=== PATIENT | male | born 1960 | race Caucasian/White ===

== ENCOUNTER → 2022-03-02 10:46 | Outpatient (CLI) | payer OTHER, SELFPAY ==
[2022-03-02 13:18] LABS: COVID19 -Nasal RAPID Negative (Negative)
== END ==
PROVIDERS: Visit Provider Family Medicine Sleep Medicine
DX: Z20.822 Contact with and (suspected) exposure to COVID-19 (principal)
CPT/HCPCS: 87635; C9803

== ENCOUNTER 2022-03-04 05:39 | Inpatient (IN) | payer OTHER, SELFPAY ==
[2022-02-25 13:47] VITALS: BMI 30.2
[2022-03-04] VITALS (18 sets, daily range): BP systolic 125–151; BP diastolic 58–87; PULSE 59–80; RESP 12–18; TEMP 35.3–36.3; O2SAT 92–100; BMI 30.2; BMI 27.6
--- NOTE | 2022-03-04 | DI.RAD.S_ITS ---
PROCEDURE: XR CERVICAL SPINE 2V OR 3V INDICATIONS: C4-7 ACDF TECHNIQUE: 3 intraoperative low resolution fluoroscopic spot films were obtained COMPARISON: None. FINDINGS: Low resolution intraoperative fluoroscopic spot films show C4-5, C5-6 and C6-7 discectomy and fusion with anterior plate and screw hardware in good position. Endotracheal tube noted. IMPRESSION: Fluoroscopic guidance Approved by: Benjamin Duron M.D. on 03/04/2022 at 11:59
[2022-03-04] MEDS: LACTATED RINGERS 1,000 ML 84 ML IV ×2 (07:13→10:38)
--- NOTE | 2022-03-04 07:57 | SUR.PREOP ---
Dr Ramirez notified that patient reports fever of 108 after surgery about 20 years ago, reporting that he was really sick. Pt not sure if temperature right after surgery or the next day due to infection.
--- NOTE | 2022-03-04 08:38 | PM.PREOP ---
Pre-operative Note COVID-19 COVID-19 status: Negative Result date/Date tested (Pos, Neg/Pending): 03/03/22 Criteria for continued procedure: Expected advancement of disease process, Possibility delay results in more complex future surgery or treatment, Increased loss of function, Continuing or worsening of significant or severe pain, Deterioration of the patient's condition or overall health and Delay expected to result in less-positive ultimate med/surg outcome Interval Note History & Physical reviewed/Exam performed by Physician: Yes Changes to H&P: No
[2022-03-04] MEDS: CEFAZOLIN 2 GM/20 ML SYRINGE IV ×2 (08:45→18:38)
--- NOTE | 2022-03-04 09:08 | SUR.OPER ---
Supine, head on gel donut. Arms padded with gel pads, tucked at sides, towel roll under shoulders. Safety belt at thigh. Legs uncrossed with pillow placed under knees and gel pads placed under bilateral heels.
[2022-03-04] MEDS: BUPIVACAINE 0.25% W/ EPI 30 ML VIAL INJ (11:30)
--- NOTE | 2022-03-04 11:33 | P.OP_ITS ---
Operative Date/Time/Diagnoses Date of procedure: 03/04/22 Time of procedure: 08:45 Pre-op diagnosis: 1. C4-5, C5-6, C6-7 spinal stenosis 2. C4-5, C5-6, C6-7 spondylosis with radiculopathy Post-op diagnosis: same Procedure & Clinicians Procedure: 1. C4-5 C5-6 C6-7 anterior cervical diskectomy and fusion 2. C4-5 C5-6 C6-7 anterior interbody cage placement 3. C4-5 C5-6 C6-7 anterior instrumentation with plate and screw placement in C4-C5-C6 and C7 vertebrae 4. Utilization of microsurgical technique and operating microscope Same procedure as scheduled: Yes Indications: Patient has been having chronic neck pain and worsening cervical radiculopathy. Patient failed multiple conservative management with worsening pain weakness and numbness in his upper extremity on the left side. Patient has been having difficulty performing activity of daily living. After discussing risks benefits of treatment options, patient elected proceed with surgery. Surgeon: Jeffy Carrasco Financial Systems Administrator: Kvng Camara Click Yes if Unassisted: No Anesthesia Type: General Operative Notes Closure Type: primary Specimen(s): none sent Estimated Blood Loss (mL): 5 Blood products transfused: none Procedure in detail: Patient was seen in the preoperative area. Risks and benefits of the surgery was discussed with the patient. Operative consent was obtained and placed in the chart. Patient was then taken to the operative room. Prophylactic antibiotic was given less than 0.5 hr prior to skin incision. General anesthesia was administered. Patient was placed into a supine position on her radiolucent table. Bilateral shoulders were taped down to allow proper C-arm imaging. Anterior cervical area was prepped and draped in a sterile fashion. Time-out was performed at this time. Using lateral C-arm imaging, the level between C4 and C7 was identified and marked on patient's neck. A oblique incision from midline towards medial border of sternocleidomastoid muscle was made. The platysma muscle was incised in line with skin incision. Metzenbaum scissor was used to develop the plane between the medial border of sternocleidomastoid and the strap muscles medially. The carotid sheath and its contents were identified and protected behind the hand-held retractor during the entire case. The plane between the carotid sheath and strap muscles was developed with Metzenbaum scissors. Dissection was made down to the level of the anterior cervical fascia. Longus colli muscle was incised on the anterior aspect of vertebral bodies bilaterally from C4-C7. Spinal needle was placed into the C4-5 disc space and confirmed with lateral C-arm imaging. Self- retaining retractors were then placed protecting the carotid sheath the sheath laterally and the esophagus medially while exposing the surgical field between C4-C7 vertebrae. Using microsurgical technique and operative microscope, anterior cervical diskectomy was performed at C4-5 C5-6 and C6-7 level. This was done by removing the disc material, removing the anterior and posterior osteophytes posterior longitudinal ligaments along with performing bilateral foraminotomies at all 3 levels. Patient was found to have severe central and foraminal stenosis at all 3 levels. Patient's stenosis was fully decompressed after decompression was c ompleted. After the diskectomy was completed, 3 anterior interbody cages were obtained. The cages were packed with globus Trifecta bone grafting material. One cage each along with the bone grafting material was then packed into the interbody spaces from C4-C7 with one cage into each interbody level. Patient had large anterior osteophytes at C5-C6 and C7 vertebrae. Large osteophytes was removed using Leksell rongeur in order to place anterior cervical plate. After the cages were placed, the anterior cervical plate was stabilized to the C4-C7 vertebrae using 2 screws at each each level. Total 8 screws were placed. After confirming placement of the hardware with AP and lateral C-arm imaging, the screws were locked into the plate using the locking mechanism and torque limiting screwdriver. After the hardware was placed and confirmed with AP and lateral C-arm imaging, the wound was irrigated with sterile normal saline. Hemostasis was accomplished using bipolar cautery. Carotid sheath contents and the esophagus was inspected and visualized and identified to be well protected throughout the entire case prior to closure. Platysma muscle and the subcutaneous tissue was closed with 2-0 Vicryl. The skin was closed with 4-0 Monocryl and Steri-Strips. Patient tolerated the procedure well. Patient was transferred recovery room in stable condition. There were no complications. Complications: none Post-operative Condition: stable Disposition: PACU Plan for aftercare: Admit to inpatient hospital
[2022-03-04] MEDS: HYDROMORPHONE 2 MG INJ IV ×2 (11:54→12:03)
[2022-03-04] MEDS: LORazepam 2 MG/ML INJ 0.25 MG IV ×3 (11:56→12:15)
[2022-03-04] MEDS: hydrOXYzine 50 MG/ML INJ IM (12:37)
[2022-03-04] MEDS: OXYCODONE/ACETAMINOPHEN 5/325 TABLET 1 TAB PO (12:41)
[2022-03-04] MEDS: SODIUM CHLORIDE 0.9% 1,000 ML 100 ML IV (14:33)
[2022-03-04] MEDS: OXYCODONE IR 5 MG TABLET 10 MG PO ×3 (14:40→23:14)
--- NOTE | 2022-03-04 15:50 | PC.NURSE ---
Pt arrived from PACU, drowsey but awakens easily. IVF infusing into LFA as per MD orders. Soft collar to neck, anterior dsg CDI. Med w/oxycodone w/good relief. Call light w/in reach, bed alarm of of pt safety.
[2022-03-04] MEDS: HYDROMORPHONE 0.5 MG INJ IV (20:11)
[2022-03-04] MEDS: HYDROMORPHONE 0.5 MG INJ 1 MG IV ×2 (21:05→23:12)
[2022-03-04] MEDS: SENNOSIDES 8.6 MG TABLET 17.2 MG PO (21:06)
[2022-03-04] MEDS: DOCUSATE 100 MG CAPSULE PO (21:06)
[2022-03-04] MEDS: diazePAM 5 MG TABLET PO (21:06)
[2022-03-05] MEDS: CEFAZOLIN 2 GM/20 ML SYRINGE IV (01:28)
[2022-03-05] MEDS: OXYCODONE IR 5 MG TABLET 10 MG PO (04:57)
[2022-03-05 05:00] VITALS: BP 134/78; PULSE 68; RESP 16; TEMP 36.3; O2SAT 97
[2022-03-05] MEDS: diazePAM 5 MG TABLET PO (05:01)
--- NOTE | 2022-03-05 07:46 | PM.DS.1 ---
History of Present Illness History of Present Illness Date Patient Seen: 03/05/22 Time Patient Seen: 07:47 Chief complaint: Neck pain s/p cervical fusion Narrative: Patient is complaining of moderate neck pain this morning. He notes that the oxy is helping significantly with his pain. He states the pressure has decreased significantly compared to his preoperative symptoms. Overall he is very pleased with his results thus far. He denies any new numbness or tingling. He is feeling pretty good and would like to be discharged home today if he is safe. Discharge Providers Provider Date of admission: 03/04/22 05:39 Discharge Date: 03/05/22 Consults: 03/04/22 13:08 Consult to Occupational Therapy Evaluate & Treat Comment: Physician Instructions: Evaluate and treat Consult to Physical Therapy Evaluate & Treat Comment: Physician Instructions: Evaluate and Treat Discharge provider: Esther Haas PA-C Summary Hospital Course Discharge Diagnosis: 1. C4-5, C5-6, C6-7 spinal stenosis 2. C4-5, C5-6, C6-7 spondylosis with radiculopathy Hospital Course: Operative Date/Time/Diagnoses Date of procedure: 03/04/22 Time of procedure: 08:45 Procedure & Clinicians Procedure: 1.? C4-5 C5-6 C6-7 anterior cervical diskectomy and fusion 2.? C4-5 C5-6 C6-7 anterior interbody cage placement 3.? C4-5 C5-6 C6-7 anterior instrumentation with plate and screw placement in C4-C5-C6 and C7 vertebrae 4.? Utilization of microsurgical technique and operating microscope Same procedure as scheduled: Yes Indications: ?Patient has been having chronic neck pain and worsening cervical radiculopathy. Patient failed multiple conservative management with worsening pain weakness and numbness in his upper extremity on the left side.? Patient has been having difficulty performing activity of daily living.? After discussing risks benefits of treatment options, patient elected proceed with surgery. Surgeon: Jeffy Carrasco Bilingual Call Center Representative: Kvng Camara Click Yes if Unassisted: No Anesthesia Type: General Operative Notes Closure Type: primary Specimen(s): none sent Estimated Blood Loss (mL): 5 Blood products transfused: none Status at Discharge Cognitive/behavioral status at discharge: oriented Overall status at discharge: patient is progressing back to baseline Exam Vital Signs (past 8 hours): - 03/05/22 05:00 Temperature 97.3 F L Pulse Rate 68 Respiratory Rate 16 Blood Pressure 134/78 Pulse Oximetry 97 Oxygen Delivery Method Nasal Cannula Oxygen Flow Rate 0 Narrative Exam Narrative: Pleasant 61-year-old male, resting comfortably in bed, no acute distress. Dressing is clean, dry, intact. Soft cervical collar is in place. Bilateral upper extremity: Motor functions are grossly intact, sensation is grossly intact to light touch. [facility]LY [facility] Medical History Cirrhosis Hepatic cirrhosis due to chronic hepatitis C infection Hepatitis C HTN (hypertension) Sciatica Spinal stenosis in cervical region Trauma (~2002) Surgical History History of carpal tunnel surgery of right wrist History of lumbar spinal fusion (~2019) Hx of hernia repair Hx of laminectomy (~1989) Social History household members: significant other Smoking Status: Former smoker alcohol intake: former Discharge Assessment & Plan Assessment and Plan Assessment: -stable status post C4-5, C5-6, C6-7 ACDF Plan of Treatment: -mobilize with PT. Limit bending, lifting, twisting x6 weeks -continue with multimodal pain management. The patient understands he needs to be using p.o. pain medications only. -will stop Valium and change to Vistaril as needed -DC home today if cleared by PT Discharge Plan Discharge Plan Patient Disposition: Home Discharge orders & Medications Prescriptions: New bisacodyl 10 mg Suppository 10 mg HI PRN PRN (Reason: Constipation) Qty: 12 0RF hydroxyzine pamoate 25 mg Capsule 25 mg PO Q4HR PRN (Reason: Muscle spasms/pain) Qty: 40 0RF oxycodone 5 mg Tablet See Rx Instructions .ROUTE .COMPLEX PRN (Reason: Pain, Severe (7-10)) Qty: 42 0RF Rx Instructions: Take 1-2 tablets every 4 hours as needed for moderate to severe postop pain Continued amlodipine 10 mg Tablet 10 mg PO DAILY 0RF Label Comments: Pt takes at 2pm daily propranolol 120 mg Capsule,Extended Release 24 Hr 120 mg PO DAILY 0RF Label Comments: Pt takes at 2pm daily Follow up/Referrals: Jeffy Carrasco MD [Physician] - (10-14 days for postoperative visit) Diet/Activity/Treatments Diet: Diet as Tolerated Other treatments: Medications: -Oxycodone 5 mg take 1-2 tablets every 4 hours as needed for moderate-severe pain (narcotic pain medication). -As needed medications: -Ducolax and /or MiraLax as needed for constipation from narcotic pain medications. -Pepcid AC as needed for stomach upset. -Vistaril (hydroxyine) 25mg 1 tab every 4 hours as needed for spasms/pain/nausea. Diet: -Stick with soft, easy to swallow foods for the first few days. Dressing/Wound care: -Keep dressing in place until postoperative follow-up office visit. -Okay to shower. Keep wound out of direct water stream. Can use PressNSeal plastic wrap to protect from shower stream. No soaking or submerging until all the scabs fall off (approximately 6 weeks). -Please call the office if dressing becomes wet, soiled, or saturated. Activities: -Wear collar when sitting upright or standing. May take off to eat and shower. Can sleep without collar, but you may find it more comfortable to wear while sleeping. -Limit bending, lifting, twisting x 6 weeks. -Continue with home exercises as directed by your physical therapist. -Ice your incision as needed for pain/inflammation/swelling. You can heat to the back of your neck as needed for pain. Protect your skin with a folded pillowcase. -Incentive Spirometer (breathing device from hospital): 5-10xs every hour while awake for the first 1-2 weeks. Follow-up: -Follow-up with your surgeon or PA in the office in 10-14 days after surgery. -Follow-up with your surgeon 6 weeks postoperatively. Call the office if you have chest pain, shortness of breath, significant swelling that will not resolve with elevating, fever over 101?, significantly worsening pain. [facility]: [phone] Skin/Wound/Dressing Care Report to your healthcare provider any signs of infection, such as:: chills, fever, night sweats, unusual drainage and unusual redness Visit Report/Discharge Packet Stand Alone Forms: Surgery Discharge Quality VTE Deep Vein Thrombosis/Pulmonary Embolism Present on Admission: No
--- NOTE | 2022-03-05 07:53 | PC.NURSE ---
Addendum entered by Erika Wilson R.N. 03/05/22 10:34: Pt worked w/PT, Discharge instructions given w/apparent understanding. HL discontinued intact. Pt & escorted by staff to waiting vehicle. D/C in stable post op course. Original Note: Pt awake, denies discomfort at this time. Anterior dsg to neck CDI, soft collar in place. HL intact/patent. Call light w/in reach. Pt calls appropriately for needs.
--- NOTE | 2022-03-05 09:00 | OT.IP.EVAL ---
Current Diagnoses Other spondylosis with radiculopathy, cervical region (03/04/22) Spinal stenosis, cervical region (03/04/22) Surgery Performed Operation Date: 03/04/22 07:45 Actual Procedures p C4-5, C5-6, C6-7 ACDF w. anterior instrumentation - Jeffy Carrasco MD Past Medical History (Last Reviewed 03/05/22 @ 07:51 by Esther Haas PA-C) Cirrhosis Hepatic cirrhosis due to chronic hepatitis C infection Hepatitis C History of carpal tunnel surgery of right wrist History of lumbar spinal fusion (~2019) HTN (hypertension) Hx of hernia repair Hx of laminectomy (~1989) Sciatica Spinal stenosis in cervical region Trauma (~2002) Surgical History (Last Reviewed 03/05/22 @ 07:51 by Esther Haas PA-C) History of carpal tunnel surgery of right wrist History of lumbar spinal fusion (~2019) Hx of hernia repair Hx of laminectomy (~1989) Occupational Therapy Inpatient Evaluation/Re-Eval M1 PT/OT-IP Prior Functional Status Start: 03/05/22 09:03 Freq: NEEDED Status: Active Protocol: Document 03/05/22 09:03 [facility] (Rec: 03/05/22 09:12 [facility] [id number]) Medical Review Prior Functional Status Medical History Reviewed Yes Communication Independent Mobility and Gait Independent and did not use a device. Activities of Daily Living and IADL's Pt independent with all ADl, IADL, drives but had neck pain . Social History Household Members spouse Living Arrangements House Number of Floors (Floors) One Floor Number of Stairs To Enter/Railing? 2 steps with left post to enter the single level house. Home Environment Standard Height Toilet,Tub/ Shower, grab bar in shower M2 OT-IP Current Condition Start: 03/05/22 09:03 Freq: Status: Active Protocol: Document 03/05/22 09:03 [facility] (Rec: 03/05/22 09:12 [facility] [id number]) Occupational Therapy Current Condition Current Condition Evaluation Date 03/05/22 Treatment Diagnosis S/p C4-5, C5-6, C6-7 ACDF Diagnosis Onset Date 03/04/22 Post Operative Precautions Cervical Spine Precautions Soft Collar for Comfort,Soft Collar at all Times,No Heavy Lifting,Log Roll M3 OT- IP Subjective and Pain Start: 03/05/22 09:03 Freq: Status: Active Protocol: Document 03/05/22 09:03 [facility] (Rec: 03/05/22 09:12 [facility] [id number]) OT- Subjective Occupational Therapy Visit Type Type Initial Evaluation Visit Start Time 08:45 Visit Stop Time 9:00 Total Visit Minutes 15 Occupational Therapy Visit Comments Patient Comments Pt agreed to get up. Patient/Caregiver Goals TO go home. OT Pain Assessment Pain When Pain Assessed At Rest Pain Present Pain Present Denied Pain M4 OT- IP ADL's Start: 03/05/22 09:03 Freq: Status: Active Protocol: Document 03/05/22 09:03 [facility] (Rec: 03/05/22 09:12 [facility] [id number]) OT MTO-Agth-Nwkebwo Comments OT Self-Feeding Comments Pt states had no issues with eating, able to go over swallowing needs after ACDF with pt. OT ADL-Grooming Comments OT Grooming Comments Pt refused. OT ADL-Oral Care General Eval Oral Care Ability Independent Comments Oral Care Comments Educated to hinge to spit or spit into a cup. OT ADL-Dressing General Eval Upper Body Dressing Ability Independent Lower Body Dressing Ability Independent Comments OT Dressing Comments Pt able to independently get dressed and alfred/doff his soft collar with good safety and understanding. OT ADL-Toileting Comments OT Toileting Comments Pt states has been able to do it on his own. OT ADL-Bathing Comments OT Bathing Comments Pt states to shower at home. M5 OT- IP IADL's Start: 03/05/22 09:03 Freq: Status: Active Protocol: Document 03/05/22 09:03 [facility] (Rec: 03/05/22 09:12 [facility] [id number]) OT-Instrumental Activities of Daily Living Home Safety Awareness Awareness of Need for Assistance at Home Good Awareness Ability to Problem Solve Emergency Able to Problem Solve Situations Home Safety Comments Pt has a supportive spouse who will assist with pt's needs as needed. Medication Management Medication Management No Deficits Identified Money Management Money Management No Deficits Identified Meal Preparation Meal Preparation Caregiver Provides Assist M6 OT- IP Functional Cognition Start: 03/05/22 09:03 Freq: Status: Active Protocol: Document 03/05/22 09:03 [facility] (Rec: 03/05/22 09:12 [facility] [id number]) Cognitive Factors Limiting Selfcare Function Cognitive Ability Level of Alertness Alert Patient Orientation Name,Age,Birthday,Month,Date, Year,Day of Week,Place, Situation Attention Span Ability Capable of Focused Attention, Capable of Sustained Attention Ability to Follow Commands Able to Follow Multi-Step Commands Memory Description No Deficits Noted Safety Awareness No Deficits Noted Cognitive Comments Cognitive Assessment Comments Pt appears intact on OT eval with no cognitive deficits. OT- Vision and Hearing OT- Hearing Assessment OT- Hearing Assessment WFL OT- Vision Assessment Visual Acuity Glasses For Reading M7 OT- IP Mobility and Balance Start: 03/05/22 09:03 Freq: Status: Active Protocol: Document 03/05/22 09:03 [facility] (Rec: 03/05/22 09:12 [facility] [id number]) OT- Bed Mobility Assessment Rolling Type of Rolling Roll to Left Level of Assistance Independent Supine to Sit Supine to Sit Assist Independent OT-Transfer Assessment Sit to and From Stand Sit to and from Stand Independent Transfers Transfer Ability Independent Technique Transfer Destination Bed Devices Transfer Assistive Devices None Comments Mobility Comments Pt independent to be able to move around in the room. OT- Balance Assessment Sitting Balance and Reactions Static Sitting Balance Ability Normal Dynamic Sitting Balance Ability Normal Standing Balance and Reactions Static Standing Balance Ability Normal Dynamic Standing Balance Ability Good M8 OT- IP Objective Assessments Start: 03/05/22 09:03 Freq: Status: Active Protocol: Document 03/05/22 09:03 [facility] (Rec: 03/05/22 09:12 [facility] [id number]) OT-Muscle Tone Assessment Muscle Tone WNL Yes M9 OT- IP Assessment and Plan Start: 03/05/22 09:03 Freq: Status: Active Protocol: Document 03/05/22 09:03 [facility] (Rec: 03/05/22 09:12 [facility] [id number]) OT Summary Assessment and Plan Potential Rehabilitation Potential Excellent Analytic Complexity at Evaluation Low Summary Progress Towards Goals Safe For Discharge Assessment Summary Pt low complexity and on OT eval already able to dress and walk around in the room independently on his own. Pt has a supportive to be able to assist pt at home. After education pt has good understanding and demonstration for all cervical precautions. Goals Days to Meet Goals 1 Frequency of Treatment Frequency Of Treatment Once a Day Treatment Plan OT Treatment Plan Patient/Family Education, Discharge Planning Discharge Recommendations OT Discharge Recommendations Home with Assistance Transportation Needs at Discharge Private Vehicle
--- NOTE | 2022-03-05 09:05 | PT.IIE ---
Current Diagnoses Other spondylosis with radiculopathy, cervical region (03/04/22) Spinal stenosis, cervical region (03/04/22) Surgery Performed Operation Date: 03/04/22 07:45 Actual Procedures p C4-5, C5-6, C6-7 ACDF w. anterior instrumentation - Jeffy Carrasco MD Medical History (Last Reviewed 03/05/22 @ 07:51 by Esther Haas PA-C) Cirrhosis Hepatic cirrhosis due to chronic hepatitis C infection Hepatitis C HTN (hypertension) Sciatica Spinal stenosis in cervical region Trauma (~2002) Physical Therapy Inpatient Evaluation/Re-Eval M1 PT/OT-IP Prior Functional Status Start: 03/05/22 09:03 Freq: NEEDED Status: Discharge Protocol: Document 03/05/22 09:03 [facility] (Rec: 03/05/22 09:12 [facility] [id number]) Medical Review Prior Functional Status Medical History Reviewed Yes Communication Independent Mobility and Gait Independent and did not use a device. Activities of Daily Living and IADL's Pt independent with all ADl, IADL, drives but had neck pain . Social History Household Members spouse Living Arrangements House Number of Floors (Floors) One Floor Number of Stairs To Enter/Railing? 2 steps with left post to enter the single level house. Home Environment Standard Height Toilet,Tub/ Shower M1 PT/OT-IP Prior Functional Status Start: 03/05/22 12:02 Freq: NEEDED Status: Active Protocol: Document 03/05/22 09:05 AB (Rec: 03/05/22 12:09 AB [id number]) Medical Review Prior Functional Status Medical History Reviewed Yes Communication able to make needs known Mobility and Gait pt stated that he is independent with all mobilities and ambualtion without AD Social History Household Members spouse Living Arrangements House Number of Floors (Floors) One Floor Number of Stairs To Enter/Railing? 2 steps B rails to enter Home Environment Standard Height Toilet,Walk in Shower,Tub/Shower,Built-In Shower Seat Home Equipment Hand Held Shower,Grab Bars In Shower M2 PT-IP Current Condition Start: 03/05/22 12:02 Freq: NEEDED Status: Active Protocol: Document 03/05/22 09:05 AB (Rec: 03/05/22 12:09 AB [email or web address]) Physical Therapy Current Condition Current Condition Evaluation Date 03/05/22 Treatment Diagnosis s/p C4-5, C5-6, C6-7 ACDF; difficulty in walking Onset Date 03/04/22 M3 PT-IP Subjective Start: 03/05/22 12:02 Freq: NEEDED Status: Active Protocol: Document 03/05/22 09:05 AB (Rec: 03/05/22 12:09 [id number]) Subjective Physical Therapy Visit Type Type Initial Evaluation Visit Start Time 09:05 Visit Stop Time 09:20 Total Visit Minutes 15 Number of FREEZER PERSON Visits 0 Physical Therapy Visit Comments Patient Comments agreeable to do PT Therapy Pain Assessment Pain When Pain Assessed At Rest Pain Present Pain Present Pain Reported Location Neck Intensity 4 M4 PT-IP Mobility and Gait Start: 03/05/22 12:02 Freq: NEEDED Status: Active Protocol: Document 03/05/22 09:05 AB (Rec: 03/05/22 12:09 [id number]) PT-Bed Mobility Assessment Rolling Type of Rolling Log Rolling Level of Assist Independent Supine to Sit Supine to Sit Independent Sit to Supine Sit to Supine Independent PT-Transfer Assessment Sit to and From Stand Sit to and from Stand Independent,1 Person Assistance,Use of Upper Extremities Equipment Transfer Assistive Device None,Gait Belt Orthotic/Prosthetic Devices or Brace: Yes Transfers Transfer Destination Bed,Chair Transfer Technique Stand Step Pivot Transfer Ability Level of Assist Independent,Use of Upper Extremities Comments Mobility Comments reviewed cervical precautions with pt. pt completed sit to stand from chair independent and transferred to bed and demonstrated log roll bed mobility independent. ambulated in the hallway without AD independent without LOB. completed up/down steps using R rail ascending SBA. pt ambulated back to his room indepedent. left pt on chair. call light within reach. pt without any concerns. Gait Assessment Gait Gait Assistance Required: Independent Distance (Feet) 100 Able to Maintain Weight Bearing Status Yes During Gait Assistive Devices Assistive Device None,Gait Belt Orthotic/Prosthetic Devices or Brace: Yes Factors Limiting Gait Function Factors Limiting Gait Function Decreased Strength,Limited Range of Motion,Pain Stair Climbing Assessment Evaluation Level of Assist On Stairs Standby Assistance Devices Stair Climbing Assistive Devices Right Railing Technique/Endurance Stair Climbing Direction Ascend and Descend Stair Climbing Technique Step Over Step Number of Steps Climbed 3 Query Text: Stair Climbing Set # Repetitions (reps) 1 PT-Balance Assessment Sitting Balance and Reactions Static Sitting Balance Ability Normal Dynamic Sitting Balance Ability Normal Standing Balance and Reactions Static Standing Balance Ability Good Dynamic Standing Balance Ability Good Device Used without AD M5 PT-IP Objective Assessments Start: 03/05/22 12:02 Freq: NEEDED Status: Active Protocol: Document 03/05/22 09:05 AB (Rec: 03/05/22 12:09 AB [id number]) Orientation Orientation/Cognition Level of Alertness Alert Orientation Name,Place,Situation Language Function Ability No Deficits Noted Safety Awareness Understands Safety Issues Memory Description No Deficits Noted Gross Range of Motion Lower Extremity ROM Assessment Within Functional Limits Strength Lower Extremity Strength Assessment Within Functional Limits Sensation Assessment Sensation Gross Sensation WNL Muscle Tone Muscle Tone WNL Yes M6 PT-IP Treatment Start: 03/05/22 12:02 Freq: NEEDED Status: Active Protocol: Document 03/05/22 09:05 AB (Rec: 03/05/22 12:09 AB [email or web address]) Physical Therapy Treatment Education Education Provided Precautions,Safety M7 PT-IP Assessment and Plan Start: 03/05/22 12:02 Freq: NEEDED Status: Active Protocol: Document 03/05/22 09:05 AB (Rec: 03/05/22 12:09 AB [email or web address]) PT Summary Assessment and Plan Potential Rehabilitation Potential Good Status of Condition at Evaluation Stable Summary Impairments Pain,ROM,Strength,Balance, Coordination,Sensation,Tone, Cognition,Bed Mobility, Transfers,Gait,Activity Tolerance Progress Towards Goals Safe For Discharge Assessment Summary pt is modified independent with ambulation without AD, SBA for stair climbing for safety. pt plans to go home with spouse to assist him. pt may go home when stable. Goals Other Goals up/down 2 steps 1 rail mod I Days to Meet Goals 3 Frequency of Treatment Frequency Of Treatment Discharge Treatment Plan Physical Therapy Treatment Plan Bed Mobility Training,Transfer Training,Gait Training, Therapeutic Exercise,Balance Retraining,Post Op Education, Discharge Planning,Hot or Cold Pack,Neuromuscular Re-ed, Coordination Retraining,Manual Therapy Precautions Cervical Spine Precautions Soft Collar for Comfort,No Heavy Lifting,Log Roll Recommendations To Nursing Amount of Assist Needed Standby Assistance Discharge Recommendations PT Discharge Recommendations Home with Assistance Transportation Needs at Discharge Private Vehicle
--- NOTE | 2022-03-05 09:16 | CM.DANOTE ---
DCP: Case received, EMR reviewed and met with patient. Introduced self and role. Was able to obtain information regarding patient's baseline activity level at home prior to his surgery. DCP assessment completed with information currently available. Patient is a 61 year old male who admitted yesterday morning to the care of the orthopedic team. PCP: Dr. Berrios at [facility]. Payer: confirmed: [facility]. Patient came to the hospital via private vehicle for a surgical procedure. Patient had C4-5, C5-6, C6-7 cervical diskectomy. Patient has history of spinal stenosis. Met with patient in his room. He was sitting up in bed, alert and oriented, cervical collar in place. Confirmed that patient resides in [place] with his partner, Sybil Bueno. At his baseline, he is independent and has been driving. P: Patient is supposed to discharge home today pending working with [employer]. Priscila Brice RN/Cloth Calender Discharge Planning/Care Management CM Discharge Assessment Start: 03/05/22 09:14 Freq: Status: Active Protocol: Document 03/05/22 09:15 (Rec: 03/05/22 09:16 [id number]) Discharge Planning Assessment Assigned Scheme Technician Priscila Brice RN/Cloth Calender Advance Directives? No History Provided By Patient,Medical Record Prior Living Arrangements House Household Members spouse Type of transporation used prior to Drives own vehicle admit Independent with ADL's Yes Is patient alert and oriented? Yes Caregiver for Another No Barriers to Discharge No Discharge Plan Home Transportation Arrangement Life partner Referrals Initiated None needed Whiteboard Updated in Patient Room with Yes name and ext. # of Scheme Technician Review Status In Process Next Review Type Continued Stay Review Pre-Anesthesia Assessment Start: 02/25/22 13:47 Freq: Status: Complete Protocol: Document 02/25/22 13:47 CAB (Rec: 02/25/22 14:24 CAB [id number]) Pre-Anesthesia Assessment Preferred Name Randy Patient Information Reviewed Via Phone Assessment Assessment Completed With Patient H&P Completed Within 30 Days Yes Comment Needs to do labs and schedule COVID Primary Care Provider Jan Boland Seen Specialist in Last 12 Months Yes Specialist Seen Orthopedist Primary Language Luxem[place]ish Portfolio Consultant Required No Height 5 ft 9 in Weight 205 lb Body Mass Index (BMI) 30.2 Hearing Ability Normal Visual Assist Magnifying Glass Dentition Type Teeth, Natural Present,Teeth, Missing Barriers to Learning None Hx Anesthesia Reactions No Hx Family Anesthesia Reaction No Hx Malignant Hyperthermia No Hx Blood Transfusions No Anesthesia Review Requested No alcohol intake former Smoking Status Former smoker how long ago did patient quit smoking Quit approx 20 years ago Substance Use Type marijuana Comment Advised not to smoke marijuana 24 hours prior to surgery Pain Present Pain Reported Musculoskeletal Symptoms Muscle Weakness,Neck Pain, Radiating Pain into Limb History of Falling (Recent or History of No ) Patient is completely paralyzed or No completely immobile Mental Status Oriented to own ability Is patient on oxygen? No Does patient have WARD/SOB No Hx Sleep Apnea No Currently Taking a Beta Marya Yes: Propranolol Can You Climb a Flight of Stairs Without Yes SOB Hx Chest Pain No Hx SOB No Hx Syncope or Dizziness No Anti-Coagulant Therapy No Has a Animal Skinner No Cardiac Testing No Hx Pacemaker/ICD No Pacemaker Rep Required? No Diet Type At Home Regular dysphagia No Urinary Catheter Present No Hx Urinary Self Catheterization No Diabetes No Hx Drug Resistant Organism No Presence of External or Internal Medical Yes: Titanium to left ribs, Devices lumbar fusion Have you had any close contact with No someone diagnosed with COVID-19? Received a COVID vaccine? Yes Received all doses? No Marital Status Single Lives With significant other Prior Living Arrangements House Number of Floors (Floors) One Floor Support System Significant Other Does the Patient Have Assistance After Yes Surgery Patient Discharge Plan Description Return Home Comment Pt advised 1 day length of stay per surgeon Feels Safe in Current Environment Yes Been Physically Hurt or Threatened By a No Person in Current Environment Do you have thoughts of harming yourself None or others? Are you currently considering suicide? No Do you have a plan to hurt yourself or No Plan others? Do You Have Any Spiritual Beliefs That No May Affect Your HC Choices? Do You Have Any Cultural Practices That No May Affect Your HC Choices? Who Can We Speak to About Patient's Care Family, Friends Identifying Code for Release of Patient Declines to issue Information Health Care Proxy/Next of Kin Sybil (S.O.) Health Care Proxy Emergency Contact Name Sybil (S.O.) Emergency Contact Advance Directives? No Power of Garment Inspector No PAC Instructions Medications to take/avoid, Nasal antibiotic,No ETOH/ petroleum product on skin DOS, NPO,Post-op transportation,Pre -surgical wash,Sturdy shoes/ comfortable clothes,Do not bring valuables and remove jewelry
[2022-03-05] MEDS: PROPRANOLOL ER 60 MG CAPSULE 120 MG PO (09:39)
[2022-03-05] MEDS: AMLODIPINE 5 MG TABLET 10 MG PO (09:39)
== END 2022-03-05 10:36 | disposition home or self-care (01) | DRG 473 ==
PROVIDERS: Admitting Provider Orthopaedic Surgery Orthopaedic Surgery of the Spine; Referring Provider Orthopaedic Surgery Orthopaedic Surgery of the Spine; Visit Provider Orthopaedic Surgery Orthopaedic Surgery of the Spine
PROC: 0RG20A0 Fusion of 2 or more Cervical Vertebral Joints with Interbody Fusion Device, Anterior Approach, Anterior Column, Open Approach (ICD-10-PCS; principal; 2022-03-04 07:45)
DX: M48.02 Spinal stenosis, cervical region (principal); M47.22 Other spondylosis with radiculopathy, cervical region; M25.78 Osteophyte, vertebrae; I10 Essential (primary) hypertension; Z20.822 Contact with and (suspected) exposure to COVID-19; Z87.891 Personal history of nicotine dependence
CPT/HCPCS: 72040; 76000; 82962; 87635; 97161; 97165; C9803; C1713; J0690; J1100; J1170; J2060; J2250; J2405; J2704; J3010; J3410